=== PATIENT | female | born 1980 | race Caucasian/White ===

== ENCOUNTER 2020-04-05 11:10 | Outpatient (RCR) | payer BC, SELFPAY ==
--- NOTE | 2020-04-09 07:36 | HP.OTFCE_ITS ---
Floor (Occasional 1-33% of Day): 15# Floor (Frequent 34-66% of Day): 8# Floor (Constant 67-100% of Day): NA Floor PDL: Sedentary-Light Knee (Occasional 1-33% of Day): 15# Knee (Frequent 34-66% of Day): 8# Knee (Constant 67-100% of Day): NA Knee PDL: Sedentary-Light Waist (Occasional 1-33% of Day): 15# Waist (Frequent 34-66% of Day): 8# Waist (Constant 67-100% of Day): NA Waist PDL: Sedentary-Light Shoulder (Occasional 1-33% of Day): 15# Shoulder (Frequent 34-66% of Day): 8# Shoulder (Constant 67-100% of Day): NA Shoulder PDL: Sedentary-Light Overhead (Occasional 1-33% of Day): 10# Overhead (Frequent 34-66% of Day): NA Overhead (Constant 67-100% of Day): NA Overhead PDL: Sedentary Comments: pain limiting factor with lifting Bending: Occasional Ability (1-33% of day) Comments: low occasional ability Squatting: Occasional Ability (1-33% of day) Comments: low occasional ability Kneeling: No Ablility (0% of day) Reaching out: Occasional Ability (1-33% of day) Comments: low occasional ability Reaching up: Occasional Ability (1-33% of day) Comments: low occasional ability Sitting: Frequent Ability (34-66% of day) Walking: Occasional Ability (1-33% of day) Standing: Occasional Ability (1-33% of day) Comments: low occasional ability Duration Sedentary Sedentary Light Light Light Medium Medium Medium Heavy Very Heavy Heavy Occasional (0-33% of day) Frequent (34-66% of day) Constant (67-100% of day) 10 # Negligible Negligible 15 # 8 # Negligible 20 # 10# Negli. 35 # 18 # 7 # 50 # 25 # 10 # 75 # 100 # >100 # 38 # 50 # >50 # 15 # 20 # >20 # Height: 1.63 m Weight:: 131.542 kg Hand Dominance: Right Medical History Including Restrictions: Pt states she was in good health until she has back sx in December of 2017. Pt states she was dx of C6/67 herniation in November and due to spinal cord involvment she proceded with sx. where she has a cervical fusion c5-C7. Pt states she has had PT. pt states she was dx this year has a buldging disc C4 above her fusion and waiting for sx. pt states physical therapy increases pain, and aquatic therapy. pt states she has dx of lower back issues. pt does not exercise on a regular basis. Diagnoses: Cervical Meylopathy dx 11/26/17. Obesity class III sc 12/28/17. 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 H/O excision of lamina of cervical vertebra for decompression of spinal cord 08/27/18. p/s hypothyroidism dx 08/27/18. Lumbar foraminal stenosis dx 01/09/19. Lumbar herniation disc 01/06/19 Symptoms: Pain neck. loss of sensation of bilateral hands. muscle craps in hands. weakness in Left leg. right big and 2nd toe sensation loss. bladder control Pain: Pain is 6/10 pt states this is without ibriprohien and a muscle relaxer. pt states she takes a muslce relaxer berfore she goes to bed Work History: Pt states she last worked December 27 2017. Pt states she was employed at [employer]. pt states she worked there for 4 years. 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 pt states she was required to lift 30-50#, and was required to stand for 8 hour shifts. pt has not returned to work Behavioral: pt was cooperative during assesment ADLS: This 39 year old female states she lives in ranch with basement. Pt states one entry no rail. pt does not go in basement (full flight of stairs with one rail). pt resides with three sons ages 12, 15 and 20. does work outside of the home. pt states she has difficulty with home mtg and meal prep. Sons do all laundry and clean the floors. Bathroom set-up is a tub/shower combo. pt has long handle shower head. pt states she can bath and dress ind. pt states she does the grocery shopping with family but is not able to do much following. ROM: pt demo with ROM. left hip flex limited 85*. right hip flex at 90. cervical spine limited with flex/ext and rotation. lumbar spine limited with ext Strength: left UE 4/5. left hip flex 4/5. right hip flex 5/5. pt bilateral knee flex/ext 5/5 Right Delivery Merchandiser Strength Average: 41.66 Right Delivery Merchandiser Strength Percentile: 2% Left Delivery Merchandiser Strength Average: 28.33 Left Delivery Merchandiser Strength Percentile: <.8% Right Lateral Pinch Average: 20.00 Right Lateral Pinch Percentile: >90% Left Lateral Pinch Average: 8.00 Left Lateral Pinch Percentile: 10% Right Tripod Pinch Average: 12.00 Right Tripod Pinch Percentile: 25% Left Tripod Pinch Average: 7.33 Left Tripod Pinch Percentile: 10% Sensation: [place] sensory testing. right 2.83. left 2.83. Testing WNL. pt does report tingling in bilateral hands, more on left than right Fine Motor: 9 hole peg test. right 21.27 seconds = 25%. left 20.14 seconds =50% Balance: no loss of balance but when without straight cane pt using external support when needed Bending: pt demo the ability to bend forward three times with using table top for support- pt reqired. external support heart rate 107 following pain7 /10 pt can bend forward on a low occasional ability Squatting: pt demo the ability to squat three times with external support. heart rate 105 pt can squat on a low occasional ability Kneeling: no ability to kneel Reaching out/up: pt demo the ability to reach out three times six times pt has increase in buring sensation down her left arm. pt demo the ability to reach up three times pt states she getting a crap in between her shoulder blades pt reports 7/10 heart rate 81 prior to 98 after. pt stood while performing this task. pt can reach up/out on low occasional ability Walking: pt demo the ability to ambulate with straight cane for 4 min needing to stop and sit. pts heart rate was 105 and completed ambulation with antalgic gate for 5 min with 112 heart rate pt amb.with antalgic gait pt pain level 8/10 Standing: pt demo the ability to stand shifting weight or leaning on table top for 4 min. pt can stand on a low occasional ability Sitting: pt demo the ability to sit for 30 min with shifting her body weight. pt can sit on a frquent ability Climbing Stairs: pt demo the ability to ascend 3 steps with using bilateral hand rails, and a single leg step patterns with right leg stepping up first. pt descended 3 steps with use of hand rail and singl leg step down right LE using hand rails. Floor Lift: pt demo the ability to lift 15# maximally from this level with using fair lifting mechanics Knee Lift: pt demo the ability to lift 15# maximally from this level with using fair lifting mechanics Waist Lift: pt demo the ability to lift 15# maximally from this level with using fair lifting mechanics Shoulder Lift: pt demo the ability to lift 15# maximally from this level with using fair lifting mechanics Overhead Lift: pt demo the ability to lift 10# maximally from this level with using fair lifting mechanics Carryin# carry for 25 feet with use of straight cane and antalgic gait pattern Comments: 04/12 heart rate 107 following. muscle crapping in legs. buring sensation from neck down left arm to LF and RF. legs feel heavy. pt limited by pain with functional mobility
--- NOTE | 2020-08-03 13:45 | HP.OT.NRP ---
SONAL FINCH was seen in my office for initial evaluation on . The following Plan of Care was established for this patient: This patient was last seen in our office 04/05/20. Pertinent comments regarding their Occupational therapy will appear below: pt seen for FCE only At this point I will be discontinuing this patient from occupational therapy. I would be happy to see this patient again in the future if found appropriate by the physician. Thank you! Reshma Jimenez, OTR/L, CHT
== END 2020-04-05 19:00 | disposition home or self-care (01) ==
LOC: OT 11:10
PROVIDERS: PCP Physician Assistant; Referring Provider Physician Assistant; Visit Provider Physician Assistant
DX: M48.02 Spinal stenosis, cervical region (principal); M50.00 Cervical disc disorder with myelopathy, unspecified cervical region; M48.061 Spinal stenosis, lumbar region without neurogenic claudication
CPT/HCPCS: 97750

== ENCOUNTER 2021-03-15 15:48 | Emergency (ER) | payer BC, MEDICARE, SELFPAY ==
[2021-03-15 15:49] VITALS: BP 160/80; PULSE 91; RESP 18; TEMP 37.1; O2SAT 98; BMI 49.9
--- NOTE | 2021-03-15 16:05 | RAD_ITS ---
STUDY: X-RAY - LEFT ANKLE REASON FOR EXAM: Female, 40 years old. PATIENT SLIPPED ON STEP AND LANDED ON ANKLE. PAIN IS ANTERIOR AND MEDIAL LEFT ANKLE JUST INFERIOR TO JOINT. TECHNIQUE: 3 view(s) of the ankle. COMPARISON: None. FINDINGS: Normal visualized distal tibia and fibula. Normal medial and lateral malleoli. Normal tibiotalar articulation and ankle mortise. Normal visualized talus and calcaneus. The visualized subtalar, talonavicular, calcaneocuboid and tarsal articulations are normal. Small corticated ossicles are present at the undersurface of the medial malleolus likely due to old trauma. A small corticated osteophyte is also present at of the medial malleolus. Moderate soft tissue swelling is present around the ankle. Cortical irregularity and a small bony fragment is seen on the medial side of the first cuneiform likely due to trauma, which is age-indeterminate as no clear acute fracture line is seen on this x-ray. Consider assessment with noncontrast CT of the ankle for further review. RAD/Ankle min 3 Views IMPRESSION: 1. Moderate soft tissue swelling is present around the ankle. Cortical irregularity and a small bony fragment is seen on the medial side of the first cuneiform likely due to trauma, which is age-indeterminate as no clear acute fracture line is seen on this x-ray. Consider assessment with noncontrast CT of the ankle for further review. Electronically Signed: Tyrell Goldstein MD at 16:48 EDT , Service support ,
--- NOTE | 2021-03-15 17:12 | EX.ED.DYSGE1 ---
HPI History of Present Illness Chief Complaint: Lower Extremity Injury Informant: patient Narrative Narrative: Patient is a 40-year-old female who presents to the emergency room for ankle pain. She states that she slipped going down one step. She felt like she had a inversion ankle injury during the fall. She denies injuring anything else. Denies hitting her head or losing consciousness. She is on blood thinning medications. She has not been able to bear any weight since then. The majority the pain is on the medial malleolus. She denies any weakness or loss of sensation of the foot. She has not tried nothing for this. She describes the pain as severe. It is exacerbated with any movements. [facility] Medical History (Updated 03/15/21 @ 19:25 by Jewels Amaro) Hypothyroidism Home Medications loratadine [Allergy Relief (loratadine)] 10 mg PO DAILY 11/22/15 [History Last Taken Unknown] naproxen sodium [Aleve] 220 mg PO Q12H PRN PRN 11/22/15 [History Last Taken Unknown] hydrocodone-acetaminophen 1 tab PO Q6H PRN PRN #15 tablet 11/29/15 [Rx Last Taken Unknown] levothyroxine 175 mcg PO DAILY #90 tablet 11/29/15 [Rx Last Taken Unknown] calcitriol 0.25 mcg PO DAILY #10 capsule 11/30/15 [Rx Last Taken Unknown] Allergy/AdvReac Type Severity Reaction Status Date / Time tree nut Allergy Anaphylaxis Verified 03/15/21 15:51 Social History Smoking Status: Never smoker ROS ROS ED Constitutional Constitutional ED: Denies chills or fever(s) Eyes Eyes: Denies change in vision ENT ENT ED: Denies epistaxis Cardiovascular Cardiovascular: Denies chest pain or palpitations Respiratory/Chest Respiratory/Chest: Denies cough or dyspnea Gastrointestinal Gastrointestinal: Denies abdominal pain, nausea or vomiting Musculoskeletal Musculoskeletal: Reports arthralgias; Denies back pain or neck pain Integumentary Denies rash Neurologic Neurologic: Denies headache(s) or weakness EXAM Physical Exam Const Vital Signs: 03/15/21 15:49 03/15/21 19:23 03/15/21 19:34 Temperature 98.7 F Temperature Source Temporal Pulse Rate 91 Respiratory Rate 18 18 18 Blood Pressure 160/80 H Blood Pressure Mean 106 Pulse Ox 98 Oxygen Delivery Method Room Air Positive well nourished and well developed General Appearance ED: well developed and NAD HEENT Reports normocephalic, head/scalp atraumatic and moist mucous membranes Eyes PERRL and EOMs intact bilaterally Neck supple Resp normal respiratory effort and clear to auscultation bilaterally Auscultation: Negative for rales, rhonchi or wheezes Cardio regular rate, regular rhythm and no murmurs Extremity Extremity Narrative: Swelling to left ankle diffusely. There is tenderness along the medial malleolus. No pain of the foot. No obvious deformity. Neurovascularly intact. Neuro no sensory deficits noted Sensorium / Orientation: alert Motor Exam: strength 5/5 throughout Psych mental status grossly normal Skin no rashes or lesions noted MDM MDM MDM Narrative Medical decision making narrative: Patient presents the ED after slipping going down a step. She had an inversion ankle injury. She is complaining of pain to the medial malleolus. X-ray was showing possibility of an avulsion fracture. She will be placed in a walking boot. Patient states she cannot tolerate crutches and has a walker at home she will use. Recommend RICE as well as anti-inflammatory/Tylenol for symptomatic treatment. She is given podiatry referral for follow-up. Return precautions reviewed. Radiography Diagnostic Testing: Radiology Impression Ankle X-Ray 03/15/21 16:05 IMPRESSION: 1. Moderate soft tissue swelling is present around the ankle. Cortical irregularity and a small bony fragment is seen on the medial side of the first cuneiform likely due to trauma, which is age-indeterminate as no clear acute fracture line is seen on this x-ray. Consider assessment with noncontrast CT of the ankle for further review. Electronically Signed: Tyrell Goldstein MD at 16:48 EDT , Service support , Discharge Plan Triage Chief Complaint: Lower Extremity Injury ED Provider: Wilmar Barr Dx/Rx/DC Orders Clinical Impression: Avulsion fracture of ankle Instructions: Treating Ankle Fractures Prescriptions: No Action naproxen sodium [Aleve] 220 MG tablet 220 mg PO Q12H PRN PRN (Reason: PAIN OR HEADACHE) RF: 0 loratadine [Allergy Relief (loratadine)] 10 MG tablet 10 mg PO DAILY RF: 0 hydrocodone-acetaminophen 1 TABLET tablet 1 tab PO Q6H PRN PRN (Reason: Pain) Qty: 15 RF: 0 levothyroxine 175 MCG tablet 175 mcg PO DAILY Qty: 90 RF: 0 calcitriol 0.25 MCG capsule 0.25 mcg PO DAILY Qty: 10 RF: 0 Primary Care Provider: Gris Woodruff Referrals: Enoch Mcmillan DPM [STAFF PHYSICIAN] - 3-5 Days Gris Woodruff PA [Primary Care Provider] - Disposition Disposition: Home, Self Care Discharge Date/Time: 03/15/21 19:35
--- NOTE | 2021-03-15 17:30 | ED.RN ---
charge authorizer called. no medium walking boots in stock.
--- NOTE | 2021-03-15 18:45 | ED.RN ---
2nd call to freight loading supervisor for walking boot.
--- NOTE | 2021-03-15 19:00 | ED.RN ---
Addendum entered by Jewels Amaro 03/15/21 19:35: patient updated at this time of delay. Original Note: advised by pharmaceutical compounding supervisor medium and large walking boots out of stock. [employer] called at this time for those sizes.
[2021-03-15 19:23] VITALS: RESP 18
--- NOTE | 2021-03-15 19:28 | ED.RN ---
loan arrived with medium and large walking boots.
[2021-03-15 19:34] VITALS: RESP 18
== END 2021-03-15 19:35 | disposition home or self-care (01) ==
LOC: ED 17:34
PROVIDERS: Emergency Provider Emergency Medicine; PCP Physician Assistant
DX: S82.892A Other fracture of left lower leg, initial encounter for closed fracture (principal); W10.9XXA Fall (on) (from) unspecified stairs and steps, initial encounter
CPT/HCPCS: 73610; 99283